=== PATIENT | female | born 1965 | race Caucasian/White ===

== ENCOUNTER 2019-07-02 16:06 | Emergency (ER) | payer BC, OTHER ==
[~2019-07-02] VITALS: Ht 157.5 cm; Wt 90.3 kg
[~2019-07-02 16:06] MED LIST: AMLO5TAB PO; ATEN50TA8 PO; [UNRECOGNIZED DRUG - REMARK]
[2019-07-02 16:29] VITALS: BP 144/90
[2019-07-02] MEDS ORDERED: SODIUM CHLORIDE FLUSH 10 ML SYR IVF STA (16:33)
--- NOTE | 2019-07-02 16:35 | NUR ---
C/O LRQ PAIN RADIATING TO LOWER BACK 05/18, N/V/D X 2 DAYS. LBM TODAY, PER PT IT WAS DIARRHEA. DENIES DYSURIA . A/O X4 FOLLOWS COMMANDS. PER DAUGHTER, PATIENT DENIES NAUSEA/VOMITING; BUT HAS DIARRHEA. PAIN STARTS IN THE RIGHT LOWER ABDOMEN RADIATING TO THE RIGHT FLANK AND BACK. ABDOMEN SOFT AND ROUND. BOWEL SOUNDS HEARD ON ALL FOUR QUADRANTS. ERMD MADE AWARE. SIDE RAILSX1. DAUGHTER AT BEDSIDE. WILL CONTINUE TO MONITOR. HX: HTN RX: LOSARTAN
[2019-07-02 17:15] LABS: BASOPHILS % (AUTO) 0.4 % (0.0-2.0); EOSINOPHILS # (AUTO) 0.1 K/uL (0-0.4); EOSINOPHILS % (AUTO) 1.1 % (0.0-4.0); HEMATOCRIT 46.9 % (36-48); HEMOGLOBIN 15.8 g/dL (12.0-16.0); MEAN CORPUSCULAR HEMOGLOBIN 29 pg (27-31); MEAN CORPUSCULAR HGB CONC 34 g/dL (33-37); MEAN CORPUSCULAR VOLUME 84.4 fL (80-94); MONOCYTES # (AUTO) 1.2 K/uL (0.8-1.0); MONOCYTES % (AUTO) 8.6 % (1.7-9.3); NEUTROPHILS # (AUTO) 10.1 K/uL (1.8-7.7); NEUTROPHILS % (AUTO) 74.9 % (42.2-75.2); PLATELET COUNT (AUTO) 225 K/uL (140-450); RED BLOOD CELL COUNT(AUTO) 5.55 MIL/uL (4.20-5.40); RED CELL DISTRIBUTION WIDTH 13.6 % (11.6-13.7); WHITE BLOOD COUNT (AUTO) 13.5 K/uL (4.8-10.8)
[2019-07-02 17:45] LABS: ALBUMIN 3.8 g/dL (3.4-5.0); ANION GAP 15.6 (8-16); CARBON DIOXIDE 25.1 mmol/L (21-32); CREATININE 1.1 mg/dL (0.6-1.3); TOTAL BILIRUBIN 0.7 mg/dL (0.0-1.0)
[2019-07-02 17:48] LABS: POTASSIUM 2.7 mmol/L (3.5-5.1)
[2019-07-02 18:07] LABS: APPEARANCE,URINE CLEAR (CLEAR); BILIRUBIN,URINE NEGATIVE (NEGATIVE); BLOOD, URINE 2+ (NEGATIVE); COLOR,URINE YELLOW (YELLOW); LEUKOCYTE ESTERASE ,URINE NEGATIVE (NEGATIVE); NITRITE, URINE NEGATIVE (NEGATIVE); UGLUCOSE NEGATIVE (NEGATIVE)
--- NOTE | 2019-07-02 18:07 | NUR ---
PATIENT TAKEN TO CT.
[2019-07-02 18:27] LABS: RBC,URINE 0-5 /HPF (0-5)
[2019-07-02 18:28] LABS: OTHER CASTS, URINE WBC CASTS 1+ /LPF (None Seen)
[2019-07-02] MEDS ORDERED: ONDANSETRON 4 MG/2 ML VIAL IVP ONE (19:25)
[2019-07-02] MEDS ORDERED: POTASSIUM CHLORIDE 10 MEQ TABER PO ONE (19:25)
[2019-07-02 19:45] VITALS: BP 144/90
--- NOTE | 2019-07-02 19:45 | NUR ---
PT DISCHARGED WITH PAPERWORK. RX TRAMADOL, ZOFRAN. EDUCATED PT REGARDING MEDICATIONS AND S/E. EDUCATED PT REGARDING D/C DIAGNOSIS AND INSTRUCTIONS. PT VERBALIZED UNDERSTANDING OF TEACHING. TOLD PT TO FOLLOW UP WITH PCP AND WHEN TO RETURN TO ED. PT VSS. ALL QUESTIONS ANSWERED.
== END 2019-07-02 19:45 | disposition home or self-care (01) ==
LOC: MED 16:06
DX: R11.2 Nausea with vomiting, unspecified (principal); R19.7 Diarrhea, unspecified; I10 Essential (primary) hypertension; Z79.899 Other long term (current) drug therapy
CPT/HCPCS: 36415; 74176; 80053; 81001; 85025; 87086; 96374; 99284; J2405